=== PATIENT | female | born 1960 | race Hispanic/Latino ===

== ENCOUNTER 2018-11-30 12:37 | Emergency (ER) | payer OTHER ==
[2018-11-30 13:02] VITALS: BP 143/91; PULSE 80; RESP 18; TEMP 99; O2SAT 97
--- NOTE | 2018-11-30 14:27 | RAD ---
Date of service: 11/30/2018 PROCEDURE: Left Knee Radiographs. HISTORY: Pain. COMPARISON: None. TECHNIQUE: 2 views obtained. FINDINGS: BONES: Normal. No fracture. JOINTS: Normal. No osteoarthritis. JOINT EFFUSION: None. OTHER FINDINGS: None. IMPRESSION: Normal radiographs of the left knee.
--- NOTE | 2018-11-30 14:48 | ED PDOC ---
Lower Extremity Pain/Injury Time Seen by Provider: 11/30/18 13:26 Chief Complaint (Nursing): Lower Extremity Problem/Injury History Per: Patient Onset/Duration Of Symptoms: Days (3) Additional Complaint(s): 58 y/o female presents to the ED due to knee pain for the past 3 days. Patient states 3 days ago she woke up with left knee discomfort and has been icing it, and elevating it with some improvement on pain. Today patient was walking up the stairs and heard a pop and acute knee pain. She states she has been able to bear weight on it and took ibuprofen that is 5 years old. patient denies numbness, tingles, fever, or any chills. PMD: none provided Past Medical History Reviewed: Historical Data, Nursing Documentation, Vital Signs Vital Signs: Last Vital Signs Temp 99 F 11/30/18 13:00 Pulse 80 11/30/18 13:00 Resp 18 11/30/18 13:00 BP 143/91 H 11/30/18 13:00 Pulse Ox 97 11/30/18 13:00 - Medical History PMH: Hyperlipidemia - Surgical History Surgical History: Tonsillectomy - Family History Family History: States: Unknown Family Hx - Home Medications Home Medications: Ambulatory Orders Medication Instructions Recorded Ibuprofen [Motrin Tab] 600 mg PO Q6 PRN 7 Days tab 11/30/18 - Allergies Allergies/Adverse Reactions: Allergies Allergy/AdvReac Type Severity Reaction Status Date / Time No Known Allergies Allergy Verified 11/30/18 12:59 Review of Systems Constitutional: Negative for: Fever, Chills Musculoskeletal: Positive for: Other (knee pain) Neurological: Negative for: Numbness Physical Exam - Reviewed Nursing Documentation Reviewed: Yes Vital Signs Reviewed: Yes - Physical Exam Appears: Positive for: No Acute Distress Extremity: Positive for: Normal ROM ( Mild decrease ROM with flexion of the knee. Normal extension. Normal ROM of flexion of extension of left ankle and hip.), Swelling (minimal), Other (Left knee erythema. No ecchymosis. ). Negative for: Deformity DTR - Knee (L): 2+ Neurological/Psych: Positive for: Awake, Alert, Oriented (x3) - ECG O2 Sat by Pulse Oximetry: 97 Medical Decision Making Medical Decision Making: Time:1400 Initial Plan: -Knee x-ray -Ibuprofen 600mg PO 1455 FINDINGS: BONES: Normal. No fracture. JOINTS: Normal. No osteoarthritis. JOINT EFFUSION: None. OTHER FINDINGS: None. IMPRESSION: Normal radiographs of the left knee. ------ Scribe Attestation: Documented by Emma Rivera, acting as a scribe for Concepcion Buckley. Provider Scribe Attestation: All medical record entries made by the Scribe were at my direction and personally dictated by me. I have reviewed the chart and agree that the record accurately reflects my personal performance of the history, physical exam, medical decision making, and the department course for this patient. I have also personally directed, reviewed, and agree with the discharge instructions and disposition. Disposition - Clinical Impression Clinical Impression: Left knee sprain - Patient ED Disposition Is Patient to be Admitted: No - Disposition Referrals: Elgin Bowens III, MD [Staff Provider] - Disposition: Routine/Home Disposition Time: 15:34 Condition: STABLE Additional Instructions: Follow up with orthopedist for further evaluation of knee pain. REturn to ER with worsening pain or weakness. Continue to rest and elevate left knee. Use RONALD bandage and crutches for comfort. Take Ibuprofen for pain. Prescriptions: Ibuprofen [Motrin Tab] 600 mg PO Q6 PRN 7 Days tab PRN Reason: Pain, Moderate (4-7) Instructions: Knee Sprain (DC) Forms: [employer] ([place]) Print Language: HEBREW
== END 2018-11-30 15:34 | disposition home or self-care (01) ==
LOC: H.ER 12:37
DX: S83.92XA Sprain of unspecified site of left knee, initial encounter (principal); X50.9XXA Other and unspecified overexertion or strenuous movements or postures, initial encounter